=== PATIENT | female | born 1980 | race Hispanic/Latino ===

== ENCOUNTER 2017-11-24 21:52 | Emergency (ER) | payer BC, OTHER ==
[2017-11-24] MEDS ORDERED: DiphenhydrAMINE 50 mg/ml Inj ONE (22:06)
[2017-11-24] MEDS ORDERED: Sodium Chloride 0.9% 1,000 ML ONE (22:06)
--- NOTE | 2017-11-24 22:07 | C.PDOC ---
History Of Present Illness 37 year old female presents to the ED c/o SOB. Patient reports she ate dinner, was watching TV when she started feeling short of breath. Patient states she was feeling stridor like respirations and feeling anxious. Patient was saturating at 98%. Patient is able to speak in complete sentences for some time before reverting to feeling SOB. Patient denies fever, chills, CP, palpitations , FB sensation in her throat. Time Seen by Provider: 11/24/17 22:07 History Per: Patient History/Exam Limitations: no limitations Onset/Duration Of Symptoms: Hrs Current Symptoms Are (Timing): Still Present Initiating Event: Upper Respiratory Illness Quality: Tightness Current Respiratory Medications: See Home Med List Recent travel outside of the [place]: No Additional History Per: Patient Past Medical History Reviewed: Historical Data, Nursing Documentation, Vital Signs Vital Signs: Last Vital Signs Temp 98.7 F 11/24/17 22:09 Pulse 89 11/24/17 22:42 Resp 22 11/24/17 22:42 BP 123/82 11/24/17 22:42 Pulse Ox 100 11/24/17 22:42 - Medical History PMH: No Chronic Diseases Denies: Chronic Kidney Disease Surgical History: No Surg Hx Family History: States: Unknown Family Hx - Social History Hx Alcohol Use: Yes Hx Substance Use: No - Immunization History Hx Tetanus Toxoid Vaccination: No Hx Influenza Vaccination: No Hx Pneumococcal Vaccination: No Review Of Systems Constitutional: Negative for: Fever, Chills Cardiovascular: Negative for: Chest Pain, Palpitations Respiratory: Positive for: Shortness of Breath. Negative for: Cough Gastrointestinal: Negative for: Nausea, Vomiting, Abdominal Pain Neurological: Negative for: Weakness, Numbness Physical Exam - Physical Exam Appears: Non-toxic, In Acute Distress, Other (anxious) Skin: Warm, Dry Head: Normacephalic Eye(s): bilateral: Normal Inspection Oral Mucosa: Moist Throat: No Erythema, No Exudate, No Drooling Neck: Supple Chest: Symmetrical Cardiovascular: Rhythm Regular Respiratory: No Rales, No Rhonchi, No Wheezing Gastrointestinal/Abdominal: Soft, No Tenderness, No Guarding, No Rebound Extremity: No Tenderness, No Swelling Extremity: Bilateral: Atraumatic, Normal Color And Temperature, Normal ROM Neurological/Psych: Oriented x3, Normal Speech Gait: Steady ED Course And Treatment - Laboratory Results Result Diagrams: 11/24/17 22:16 11/24/17 22:16 Pulse Ox Interpretation: Normal Progress Note: Plan: - IV solumedrol. - Pepcid. - benadryl. 12:29 am pt speaking in complete sentences. wants to go home Reevaluation Time: 00:29 Reassessment Condition: Improved Critical Care Time - Critical Care Note Total Time (in mins): 30 Documented critical care: time excludes all time spent performing seperately billable procedures. Medical Decision Making Medical Decision Making: Upon provider reevaluation patient is feeling better, is medically stable, and requires no further treatment in the ED at this time. Patient will be discharged home with Rx for prednisone, epi pen . Counseling was provided and all questions were answered regarding diagnosis and need for follow up with the referred clinic. There is agreement to discharge plan. Return if symptoms persist or worsen. Disposition Counseled Patient/Family Regarding: Studies Performed, Diagnosis, Need For Followup, Rx Given - Disposition Referrals: at [facility] [Outside] [facility] [Outside] Disposition: HOME/ ROUTINE Disposition Time: 22:07 Condition: FAIR Additional Instructions: Please return if symptoms recur. Also use bennadryl, pepcid and claritin Prescriptions: Epinephrine [Epipen] 0.3 mg IJ ONCE PRN #2 [email or web address] PRN Reason: Anaphylaxis Prednisone [Deltasone] 20 mg PO DAILY #5 tablet Instructions: Food Allergy - Clinical Impression Clinical Impression: Allergic reaction - Scribe Statement The provider has reviewed the documentation as recorded by the Scribe Swapnil Mcconnell All medical record entries made by the Scribe were at my direction and personally dictated by me. I have reviewed the chart and agree that the record accurately reflects my personal performance of the history, physical exam, medical decision making, and the department course for this patient. I have also personally directed, reviewed, and agree with the discharge instructions and disposition.
[2017-11-24 22:08] VITALS: BMI 21.2
[2017-11-24] MEDS ORDERED: Sodium Chloride 0.9% 1,000 ML IV ONE (22:08)
[2017-11-24] MEDS ORDERED: DiphenhydrAMINE 50 mg/ml Inj IVP STA (22:08)
[2017-11-24 22:19] VITALS: TEMP 98.7
[2017-11-24 22:19] LABS: BASO # 0.1 K/uL (0.0-0.2); BASO % 1.3 % (0.0-2.0); EOS # 0.1 K/uL (0.0-0.7); HEMOGLOBIN 13.7 g/dL (11.0-16.0); LYMPH # 3.1 K/uL (1.0-4.3); LYMPH % 58.9 % (20.0-40.0); MEAN CELL VOLUME 90.1 fL (81.0-99.0); MEAN CORPUSCULAR HEMOGLOBIN 31.4 pg (27.0-31.0); MEAN CORPUSCULAR HGB CONC 34.9 g/dL (33.0-37.0); MEAN PLATELET VOLUME 9.1 fL (7.2-11.7); MONO # 0.5 K/uL (0.0-0.8); MONO % 9.6 % (0.0-10.0); NEUT # 1.5 K/uL (1.8-7.0); NEUT % 29.2 % (50.0-75.0); NRBC % 0.1 % (0.0-2.0); RBC 4.36 Mil/uL (3.80-5.20); RED CELL DISTRIBUTION WIDTH 14.4 % (11.5-14.5); WHITE BLOOD COUNT 5.3 K/uL (4.8-10.8)
[2017-11-24 22:30] LABS: ARTERIAL BLOOD GAS HCO3 15.9 mmol/L (21-28); ARTERIAL BLOOD GAS O2 SAT 80.1 % (95-98); ARTERIAL BLOOD GAS PCO2 16 mm/Hg (35-45); ARTERIAL BLOOD GAS PH 7.43 (7.35-7.45); ARTERIAL BLOOD GAS PO2 38 mm/Hg (80-100); ARTERIAL BLOOD GAS TCO2 11.1 mmol/L (22-28)
[2017-11-24 22:31] LABS: ALB/GLOB RATIO 1.5 (1.0-2.1); ALBUMIN 4.6 g/dL (3.5-5.0); ALT/SGPT 33 U/L (9-52); AST/SGOT 31 U/L (14-36); BLOOD UREA NITROGEN 4 mg/dL (7-17); CALCIUM 9.4 mg/dl (8.6-10.4); GFR NON-AFRICAN AMERICAN > 60
[2017-11-24] MEDS ORDERED: Albuterol-Ipratrop 3 mg / 0.5 (3 ml) UD ONE (22:32)
[2017-11-24] MEDS: Albuterol-Ipratrop 3 mg / 0.5 (3 ml) UD IH SCH (22:33)
[2017-11-25 00:31] VITALS: BP 100/54; PULSE 88; RESP 14; O2SAT 98
== END 2017-11-25 00:42 | disposition home or self-care (01) ==
LOC: C.ER 21:52
DX: T78.40XA Allergy, unspecified, initial encounter (principal)
CPT/HCPCS: 80053; 82803; 85025; 94640; 96361; 96374; 96375; 99284; J1200; J2930; J7030